=== PATIENT | male | born 1975 | race Caucasian/White ===

== ENCOUNTER → 2016-12-29 07:07 | Day surgery (SDC) | payer BC ==
[~2016-12-29 07:07] MED LIST: Buffered Lidocaine 0.9% SYRIN* 5 ML/SYR SYRINGE INTRADERM ONE; Dexamethasone IV* 4 MG/ML 1 ML (4 MG) ONE; Famotidine IV* 10 MG/ML 2 ML (20 mg) IV ONE; Famotidine IV* 10 MG/ML 2 ML (20 mg) ONE; Labetalol IV* 5 MG/ML 20 ML VIAL ONE; Lidocaine 2% EPI 1:200000 MPF* 20 ML VIAL ONE; Lidocaine 2% PF * 5 ML VIAL ONE; Metoclopramide TAB* 10 MG ONE; Metoclopramide TAB* 10 MG PO ONE; Midazolam* 1 MG/ML 5 ML VIAL (5 MG) ONE; Ondansetron INJ* 2 MG/ML VIAL IV PRN; Ondansetron INJ* 2 MG/ML VIAL ONE; Oxymetazoline 0.05% NASAL SPR* 15 ML BTL ONE; Propofol* 10 MG/ML 20 ML BTL IV PUSH ONE; fentaNYL* 50 MCG/ML 2 ML VIAL (100 MCG VIAL) ONE; oxyCODONE/Acetamin 5/325 MG* TAB ONE
[2016-12-29] MEDS: fentaNYL* 50 MCG/ML 2 ML VIAL (100 MCG VIAL) IV PRN ×2 (09:51→10:15)
[2016-12-29] MEDS: oxyCODONE/Acetamin 5/325 MG* TAB PO PRN ×2 (09:52→10:20)
[2016-12-29 11:47] VITALS: BP 129/92
--- NOTE | 2016-12-30 03:52 | OP ---
DATE OF OPERATION: 12/29/16 - [facility] DATE OF : 75 SURGEON: Zeyad Duque M.D. ANESTHESIOLOGIST: Cheko Whyte MD ANESTHESIA: General PRE-OP DIAGNOSIS: Deviated nasal septum, nasal dyspnea, hypertrophied turbinates. POST-OP DIAGNOSIS: Deviated nasal septum, nasal dyspnea, hypertrophied turbinates. OPERATIVE PROCEDURE: Septoplasty and submucosal resection of inferior turbinates. BRIEF HISTORY: This 41-year-old gentleman with significant history of deviated nasal septum with obstruction, compensatory hypertrophy of the turbinates. DESCRIPTION OF PROCEDURE: The patient was taken to the operating room, general anesthetic given, patient intubated with LMA. Nose was decongested with Afrin placed pledgets and subsequently 2% lidocaine with epinephrine was infiltrated into mucosa of the septum and the turbinates. Left hemitransfixion incision was created, mucoperichondrial flap was created. Quadrangular cartilage was disarticulated along the vomer-ethmoidal complex posteriorly, along the maxillary crest inferiorly. Portion of the crest was removed along with a significantly deviated septum inferiorly keeping a healthy portion of the quadrangular cartilage. A portion of the vomer-ethmoidal bone was also resected to allow swinging of the cartilage. Concave surface of the cartilage was then scored down to its convex surface to straighten it out. Multiple mattress sutures were then used with chromic. The hemitransfixion incision was closed. splints were applied for securing the mucosa. we turned our attention to the inferior turbinate. A small incision was made in the inferior mucosal tissue was carried out, submucosal resection was carried out of the turbinate bone and then subsequently cauterization was carried out of the submucosal tissue for hemostasis. Small nasal dressing was applied. The patient was awakened and sent to recovery room in stable condition. Instrument and sponge count correct. Blood loss minimal. [id number] #: [id number] [facility]
== END | disposition home or self-care (01) ==
LOC: OR 07:07
PROVIDERS: ATTEND Otolaryngology
DX: J34.2 Deviated nasal septum (principal); J34.3 Hypertrophy of nasal turbinates; G47.33 Obstructive sleep apnea (adult) (pediatric)
CPT/HCPCS: A9270-GY; J1100; J2250; J2405; J2704; J3010